=== PATIENT | male | born 1990 | race Caucasian/White ===

== ENCOUNTER 2022-08-06 13:13 | Observation (INO) | payer OTHER ==
[2022-08-06] MEDS ORDERED: ONDANSETRON 4 MG/2 ML VIAL IVP STA (13:36)
[2022-08-06] MEDS ORDERED: DIPH,PERTUS(ACELL)TETVAC-LF 0.5 ML VIAL IM ONE (13:36)
[2022-08-06] MEDS ORDERED: HYDROmorphone 1 MG/ML 1 ML SYRINGE IVP STA (13:36)
--- NOTE | 2022-08-06 14:04 | XR ---
EXAMINATION TYPE: XR knee limited RT DATE OF EXAM: 08/06/2022 CLINICAL HISTORY: Male penetrating injury with pain TECHNIQUE: Frontal and lateral views of the right knee are obtained. COMPARISON: None. FINDINGS: Metallic nail transverses from anterior to posterior direction and medial to lateral direc tion located just inferior to the anterior distal femoral condyle extending into the intercondylar no tch along posterior lateral course. No bony involvement or penetration clearly seen. There is no acut e fracture/dislocation evident in right knee. Mild tricompartment joint space loss. Moderate sized saez prapatellar joint effusion. IMPRESSION: As above.
[2022-08-06] MEDS ORDERED: PROPOFOL 10 MG/ML 20 ML VIAL IV STA (14:12)
[2022-08-06] MEDS ORDERED: SODIUM CHLORIDE 0.9% 500 ML 500 ML IV STA (14:12)
[2022-08-06] MEDS ORDERED: HYDROmorphone 0.5 MG/0.5 ML SYRINGE IVP STA ×2 (15:13→15:14)
--- NOTE | 2022-08-06 15:19 | ED ---
Lower Extremity Injury HPI - General Source: patient, RN notes reviewed Mode of arrival: wheelchair Limitations: no limitations <Rikki Dennison - Last Filed: 08/06/22 15:47> <Michael Johnson - Last Filed: 08/08/22 00:54> - General Chief Complaint: Extremity Injury, Lower Stated Complaint: shot nail rt knee Time Seen by Provider: 08/06/22 13:32 - History of Present Illness Initial Comments: 32-year-old male presents emergency from chief complaint of nail and right knee. Patient states that he was using a nail gun which fell down toward his knee striking his knee. Patient is unsure when his last tetanus was. Pain is quite severe at this time unable to move his leg denies any paresthesias. Patient states on the medial aspect of his knee. (Rkiki Dennison) - Related Data Previous Rx's Medication Instructions Recorded Cephalexin [Keflex] 500 mg PO Q6HR 10 Days #28 cap 08/07/22 HYDROcodone/APAP 7.5-325MG [[place] 1 each PO Q6HR PRN #28 tab 08/07/22 7.5] Ibuprofen [Motrin] 800 mg PO Q8H PRN #40 tab 08/07/22 Sennosides/Docusate Sodium 1 each PO DAILY PRN #21 tablet 08/07/22 [Senna-S 8.6-50 mg Tablet] Allergies Allergy/AdvReac Type Severity Reaction Status Date / Time No Known Allergies Allergy Verified 08/06/22 15:25 Review of Systems ROS Other: All systems not noted in ROS Statement are negative. <Rikki Dennison - Last Filed: 08/06/22 15:47> ROS Other: All systems not noted in ROS Statement are negative. <Michael Johnson - Last Filed: 08/08/22 00:54> ROS Statement: Those systems with pertinent positive or pertinent negative responses have been documented in the HPI. Past Medical History Past Medical History: No Reported History History of Any Multi-Drug Resistant Organisms: None Reported Past Surgical History: No Surgical Hx Reported Past Psychological History: No Psychological Hx Reported Smoking Status: Never smoker Past Alcohol Use History: None Reported Past Drug Use History: None Reported <Rikki Dennison - Last Filed: 08/06/22 15:47> General Exam Limitations: no limitations General appearance: alert, in no apparent distress Head exam: Present: atraumatic, normocephalic, normal inspection Respiratory exam: Present: normal lung sounds bilaterally. Absent: respiratory distress, wheezes, rales, rhonchi, stridor Cardiovascular Exam: Present: regular rate, normal rhythm, normal heart sounds. Absent: systolic murmur, diastolic murmur, rubs, gallop, clicks Extremities exam: Present: other (Right knee there is noted nail to the pat, trending to lateral distal portion of the leg neurovascular intact) <Rikki Dennison - Last Filed: 08/06/22 15:47> Course Vital Signs 08/06/22 08/06/22 08/06/22 13:22 13:42 15:06 Temperature 97.4 F L Pulse Rate 100 91 85 Respiratory 20 16 18 Rate Blood Pressure 130/76 109/74 132/97 O2 Sat by Pulse 98 98 98 Oximetry 08/06/22 08/06/22 08/06/22 15:27 15:37 15:45 Temperature Pulse Rate 71 61 62 Respiratory 18 18 18 Rate Blood Pressure 139/54 139/95 130/92 O2 Sat by Pulse 99 99 98 Oximetry 08/06/22 08/06/22 16:00 16:15 Temperature Pulse Rate 57 L 63 Respiratory 18 18 Rate Blood Pressure 138/88 147/81 O2 Sat by Pulse 98 98 Oximetry Procedures - Forgein Body Removal Soft Tissue Consent Obtained: written consent Site: lower extremity Foreign Body Suspected: Other (nail) Foreign Body Removed: no Patient Tolerated Procedure: well, no complications <Rikki Dennison - Last Filed: 08/06/22 15:47> - Procedural Sedation Procedural Sedation Start Time: 15:30 Procedural Sedation Stop Time: 15:45 Indications: other ASA Class: I Mallampati Airway Score: 1 Time of Last PO Intake: 12:00 Preparation: vehicle monitor technician applied, pulse oximeter, capnometry used, supplemental O2 applied, suction/airway equipment at bedside, IV secured IV Propofol Dose (mgs): 90 Complications: none Patient Tolerated Procedure: well, no complications <Michael Johnson - Last Filed: 08/08/22 00:54> Medical Decision Making <Rikki Dennison - Last Filed: 08/06/22 15:47> - Lab Data Result diagrams: 08/07/22 10:39 08/07/22 10:39 <Michael Johnson - Last Filed: 08/08/22 00:54> - Medical Decision Making Case discussed with orthopedics recommends have the nail removed patient was given tetanus, antibiotics patient will be admitted for washout of the knee. Attempted foreign body removal with consultation with Dr. Johnson. The nail was removed at the first part and which met large amount resistance, first ring heart was removed to the skin but unable to continue removal. At this time pat ient will be admitted (Rikki Dennison) Disposition Time of Disposition: 15:19 <Rikki Dennison - Last Filed: 08/06/22 15:47> <Michael Johnson - Last Filed: 08/08/22 00:54> Clinical Impression: Puncture wound of right knee with foreign body, Foreign body of right knee Disposition: ADMITTED IP TO THIS HOSP Condition: Good
[2022-08-06] MEDS ORDERED: PROPOFOL 10 MG/ML 20 ML VIAL IV ONE ×2 (15:35→18:23)
[2022-08-06] MEDS ORDERED: IV FLUID CONTINUATION 1,000 ML IV ONE (17:50)
--- NOTE | 2022-08-06 17:53 | P.HPOR ---
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 He accidentally punctured his knee with a nail gun through his pants. He notes he did receive a tetanus booster in the emergency room. He denies previous injury to the right knee. He is having a difficult time weightbearing and moving the knee. Review of Systems As per HPI Past Medical History Past Medical History: No Reported History History of Any Multi-Drug Resistant Organisms: None Reported Past Surgical History: No Surgical Hx Reported Past Psychological History: No Psychological Hx Reported Smoking Status: Never smoker Past Alcohol Use History: None Reported Past Drug Use History: None Reported Medications and Allergies Home Medications Medication Instructions Recorded Confirmed Type No Known Home Medications 08/06/22 08/06/22 History Allergies Allergy/AdvReac Type Severity Reaction Status Date / Time No Known Allergies Allergy Verified 08/06/22 15:25 Physical Examination - Knee right Appearance: effusion, other (Foreign body/nail protruding from the medial aspect of the right knee) Effusion grade: grade 1 Tenderness with palpation: medial, peripatellar Pain: with flexion Gait: limping ROM: extension: 0 degrees ROM: flexion: 25 degrees Results The patient's a well-developed well-nourished male of mesomorphic habitus. HEENT exam is nonfocal. Neck is supple. He has painless passive motion of the right hip. He has limited motion of the right knee secondary to pain. He has tenderness about the suprapatellar region along with medial aspect. He has a nail/foreign body protruding from the medial aspect the knee. There is no danna rounding erythema or warmth. His distal neurovascular appears intact in the right lower extremity. - Diagnostic results Knee x-ray: image reviewed (2 views of the right knee obtained in the emergency room show evidence of a metallic foreign bodyintra-articular positioning. No definite osseous abnormality is noted.) Assessment and Plan Assessment: Foreign body right kneeintra-articular Plan: I talked to the patient regarding his condition along with treatment options. This point we'll plan to remove the foreign body along with proceed with irrigation and debridement of the right knee arthroscopically. Risks and benefits were discussed at length in layman's terms. We will continue the patient on IV antibiotics overnight. Time with Patient: Less than 30
[2022-08-06] MEDS ORDERED: HYDROmorphone 0.5 MG/0.5 ML SYRINGE IVP PRN (18:22)
[2022-08-06] MEDS ORDERED: HYDROmorphone 1 MG/ML 1 ML SYRINGE IVP PRN (18:22)
[2022-08-06] MEDS ORDERED: traMADol 50 MG TAB PO PRN (18:23)
[2022-08-06] MEDS ORDERED: HYDROmorphone (PF) 1 MG/ML ONE (18:23)
[2022-08-06] MEDS ORDERED: ACETAMINOPHEN TAB 325 MG TAB PO PRN (18:23)
[2022-08-06] MEDS ORDERED: SUCCINYLCHOLINE CHLORIDE 200 MG/10 ML VIAL IV ONE (18:23)
[2022-08-06] MEDS ORDERED: fentaNYL (PF) 50 MCG/ML 2 ML AMP ONE (18:23)
[2022-08-06] MEDS ORDERED: LIDOCAINE 2% INJ 20 MG/ML (2 ML VIAL) ONE (18:23)
[2022-08-06] MEDS ORDERED: MIDAZOLAM 2 MG/2 ML VIAL ONE (18:23)
[2022-08-06] MEDS ORDERED: ONDANSETRON 4 MG/2 ML VIAL IVP PRN (18:27)
[2022-08-06] MEDS ORDERED: SODIUM CHLORIDE 0.9% 50 ML with ceFAZolin 2,000 MG IV ONE ×2 (18:28)
[2022-08-06] MEDS ORDERED: KETOROLAC 15 MG/ML 1 ML VIAL IVP PRN (18:29)
[2022-08-06] MEDS ORDERED: LACTATED RINGERS 1,000 ML IV ONE (18:53)
--- NOTE | 2022-08-06 19:39 | P.OP ---
Date of Procedure: 08/06/22 Preoperative Diagnosis: Foreign body right kneeintra-articular Postoperative Diagnosis: Same in addition to grade 4 chondral injury medial femoral condyle and lateral tibial plateau Procedure(s) Performed: Right knee arthroscopic irrigation and debridement/microfracture medial femoral condyle/lateral tibial chondrectomy/foreign body removal Anesthesia: CARI Surgeon: Suhail Peng Estimated Blood Loss (ml): 20 Pathology: none sent Condition: stable Disposition: PACU Indications for Procedure: The patient's a 32-year-old male who presents after injuring himself today with a nail gun. He sustained a foreign body that appeared to be intra-articular in the right knee. A discussion of the risks and benefits of operative intervention was made with patient. He opted to proceed. Operative risks to include infection, neurovascular injury, possible need for subsequent procedures was discussed. Informed consent was obtained. Operative Findings: As below Description of Procedure: The patient was brought to the operating room, and after induction of general anesthesia examined the right knee. The nail was protruding from the medial aspect of the right knee. This was then removed with gentle traction. One of the barbs was noted to be missing. The right lower extremity was prepped and draped in a normal fashion. I did extend his medial laceration approximately 1 cm and tried to dissect and remove the bunny. This was unsuccessful. A superior lateral portal was made through a 3 mm skin incision superior and lateral to the patella. This was used for outflow. A lateral portal was made through a 5 mm vertical skin incision lateral to the patella tendon above the joint line. Diagnostic arthroscopy was performed. On inspection of the medial compartment, a grade 4 chondral defect was noted involving the distal medial portion of the medial femoral condyle measuring 4 x 8 mm. There was a loose chondral flap that was removed with a motorized shaver. The medial meniscus was intact and stable.. T On inspection of the notch, the anterior cruciate ligament appeared to be intact. On inspection of the lateral compartment, a grade 4 chondral injury was noted involving the anterior medial portion of the lateral tibial plateau. There was a loose chondral flap removed with a biter and shaver. This measured approximately 3 x 4 mm. The knee was copiously irrigated with 9 L of fluid. The medial capsule was inspected and the metallic bunny was identified and removed. Microfracture was performed utilizing a power pick breeching the subchondral surface of the distal medial femoral condyle.. On inspection of the patellofemoral articulation, there is some chondral fibrillation. The gutters were clear debris. The knee was then thoroughly irrigated. The portals were closed with Steri-Strips. A sterile dressing was applied in addition to a compression stocking. The patient was awoken from general anesthesia and transferred to recovery room in good condition. Blood loss was estimated at 20 mL. No complications were incurred.
--- NOTE | 2022-08-06 20:28 | XR ---
EXAMINATION TYPE: XR knee limited RT DATE OF EXAM: 08/06/2022 7:54 PM INDICATION: Patient age:Male; 32 years old; Reason for study: s/p right knee surgery; COMPARISON: None. TECHNIQUE: The Right knee(s) was examined in Frontal, . FINDINGS: Prior foreign body consistent with nail is been removed. No evidence of fracture. Postsurg ical changes soft tissues. IMPRESSION: Status post nail removal without evidence of radiopaque foreign body. No fractures identified.
[2022-08-07] MEDS: HYDROcodone/APAP 7.5-325MG 1 EACH TAB PO PRN ×2 (03:12→09:09)
[2022-08-07 03:25] VITALS: RESP 17
[2022-08-07 07:32] VITALS: BP 139/76; PULSE 65; TEMP 97.8
[2022-08-07 10:55] LABS: Basophils % (A) 0 %; Eosinophils % (A) 0 %; HCT 39.3 % (39.0-53.0); HGB 13.2 gm/dL (13.0-17.5); Lymphocytes # (A) 1.6 k/uL (1.0-4.8); Lymphocytes % (A) 19 %; MCH 30.4 pg (25.0-35.0); MCHC 33.5 g/dL (31.0-37.0); MCV 90.8 fL (80.0-100.0); Mean Platelet Volume 8.1; Monocytes # (A) 0.5 k/uL (0-1.0); Monocytes % (A) 6 %; Neutrophils # (A) 6.4 k/uL (1.3-7.7); Neutrophils % (A) 74 %; Platelet Count 204 k/uL (150-450); RBC 4.33 m/uL (4.30-5.90); RDW 12.6 % (11.5-15.5); WBC 8.6 k/uL (3.8-10.6)
[2022-08-07 11:11] LABS: ALT 18 U/L (4-49); AST 23 U/L (17-59); African American GFR (CKD) >90 (>60 ml/min/1.73 sqM); Albumin 3.6 g/dL (3.5-5.0); Albumin/Globulin Ratio 1.6; Alkaline Phosphatase 42 U/L (38-126); Anion Gap 6 mmol/L; Blood Urea Nitrogen 13 mg/dL (9-20); C Reactive Protein 0.9 mg/dL (<1.0); Calcium 8.5 mg/dL (8.4-10.2); Carbon Dioxide 26 mmol/L (22-30); Chloride 105 mmol/L (98-107); Globulin 2.3 g/dL; Glucose 101 mg/dL (74-99); Non-African American GFR(CKD) >90 (>60 ml/min/1.73 sqM); Potassium 4.1 mmol/L (3.5-5.1); Sodium 137 mmol/L (137-145); Total Protein 5.9 g/dL (6.3-8.2)
--- NOTE | 2022-08-07 12:53 | P.PN ---
Subjective Progress Note Date: 08/07/22 Principal diagnosis: status post right knee arthroscopy with lavage and debridement, foreign body removal Patient evaluated at bedside today, his resting comfortably. Postop bandages position and condition. His pain is currently controlled. He does have some discomfort throughout the knee, he feels is pretty tight. He denies any numbness or tingling in the extremity. He denies any fevers or chills at this time. Objective - Vital Signs Vital signs: Vital Signs Temp 97.8 F 08/07/22 07:31 Pulse 65 08/07/22 08:00 Resp 17 08/07/22 08:00 BP 139/76 08/07/22 07:31 Pulse Ox 97 08/07/22 07:31 FiO2 21 08/06/22 21:11 Intake & Output 08/06/22 08/07/22 08/07/22 18:59 06:59 18:59 Intake Total 550 100 Output Total 300 420 Balance 250 -320 Weight 88.451 kg 88.451 kg Intake: IV 550 100 Output: Urine 300 400 Estimated Blood Loss 20 - Exam Right lower extremity: Postoperative bandage is in good position and condition. All compartments are soft and compressible knee extremity. Calf is soft, no tenderness with palpation. Plantar flexion, dorsiflexion, EHL, FHL are intact. Sensory exam to light touch is intact of the extremity, dorsalis pedis pulses 2+ - Labs CBC & Chem 7: 08/07/22 10:39 08/07/22 10:39 Labs: Abnormal Lab Results - Last 24 Hours (Table) 08/07/22 Range/Units 10:39 Glucose 101 H (74-99) mg/dL Total Protein 5.9 L (6.3-8.2) g/dL Assessment and Plan Assessment: Postoperative day #1 status post right knee arthroscopy with irrigation and debridement, foreign body removal Plan: Pain control, plan for discharge home on [place] and ibuprofen Wound care instructions were discussed, this including when removed bandage, showering instructions and elevating and icing Discussed this case with infectious disease, plan for discharge home on oral Keflex 500 mg every 6 hours for 1 week Discussed activity level restrictions, this concluded use of crutches and walker as needed Discharge planning: An orthopedic standpoint patient is to discharge to home with follow-up in the outpatient setting Time with Patient: Less than 30
--- NOTE | 2022-08-07 13:00 | P.DS ---
Providers Date of admission: 08/06/22 16:00 Expected date of discharge: 08/07/22 Attending physician: Suhail Peng Consults: 08/07/22 07:32 Consult Physician Routine Consulting Provider: Michelle Rogers Consult Reason/Comments: Antibiotic coverage, s/p removal foreign body Do you want consulting provider notified?: Yes Primary care physician: Shun Lugo [place] [facility] Course: Date of admission: 08/06/2022 Date of discharge: 08/07/2022 Admission diagnosis: Foreign body right knee Discharge diagnosis: Status post right knee arthroscopic lavage and debridement, microfracture the medial femoral condyle, chondroplasty of the lateral tibial plateau, foreign body removal Attending physician: Dr. Peng Surgical procedures: Right knee arthroscopic lavage and debridement, m icrofracture of the medial femoral condyle, chondroplasty lateral tibial plateau, foreign body removal Brief history: Patient is a 32-year-old male who presented to [facility] on 08/06/2022 after sustaining a puncture wound from a nail gun to his right knee. It was determined that the nail was intra-articular. I was contacted by the emergency room staff regarding the patient. Patient was admitted to [facility], he was started on IV antibiotics in the tetanus was updated in the emergency room. Plan for surgical intervention was scheduled for 08/06/2022. Hospital course: Details of patient's surgery can be found in operative report. Patient tolerated the procedure well and was subsequently transported to orthopedic floor. Patient's orthopeidc and medical care was provided daily.. Patient was treated with aspirin for their postoperative DVT prophylaxis during their inpatient stay. Patient was noted to have a relatively uneventful postoperative course. Infectious disease was available to evaluate the patient for recommendations. Patient reported satisfactory pain control with oral pain medications by postoperative day 0. Patient showed satisfactory progress with physical therapy. Patient moved steadily through the program and had no difficulty meeting the goals by postoperative day 1. Given patient's otherwise satisfactory course and having met physical therapy goals, plan is to discharge patient home on postoperative day 1. Discharge condition/disposition: Patient will be discharged home in stable condition. Discharge medications: Instructions are given on resumption of patient's normal daily medications per primary care recommendation, in addition patient will be prescribed [place] 7.5 mg/325 mg, ibuprofen 800 mg, Senokot-S, Keflex 500 mg. Orthopedic discharge instructions: 1. Okay to remove bandage is a 08/08/2022 2. Utilize compression sock to help with swelling 3. Keep incisions covered and dry while showering 4. Ice and elevate often 5. Utilize crutches/walker as needed 6. Pain medication and anti-inflammatories as needed 7. Plan [facility] 2 weeks 8. Please contact the office with any acute changes or questions regarding the knee Procedures: Right knee arthroscopic irrigation and debridement, microfracture the medial femoral condyle, chondroplasty lateral tibial plateau, foreign body removal Patient Condition at Discharge: Good Plan - Discharge Summary Discharge Rx Participant: Yes New Discharge Prescriptions: New Cephalexin [Keflex] 500 mg PO Q6HR 10 Days #28 cap Ibuprofen [Motrin] 800 mg PO Q8H PRN #40 tab PRN Reason: Pain HYDROcodone/APAP 7.5-325MG [[place] 7.5] 1 each PO Q6HR PRN #28 tab PRN Reason: Pain Sennosides/Docusate Sodium [Senna-S 8.6-50 mg Tablet] 1 each PO DAILY PRN #21 tablet PRN Reason: Constipation Discharge Medication List Cephalexin [Keflex] 500 mg PO Q6HR 10 Days #28 cap 08/07/22 [Rx] HYDROcodone/APAP 7.5-325MG [[place] 7.5] 1 each PO Q6HR PRN #28 tab 08/07/22 [Rx] Ibuprofen [Motrin] 800 mg PO Q8H PRN #40 tab 08/07/22 [Rx] Sennosides/Docusate Sodium [Senna-S 8.6-50 mg Tablet] 1 each PO DAILY PRN #21 tablet 08/07/22 [Rx] Follow up Appointment(s)/Referral(s): Shun Boggs MD [Primary Care Provider] - 1-2 days Joe Balderrama PAC [PHYSICIAN AUTOMATIC QUILLING MACHINE OPERATOR] - 2 Weeks Activity/Diet/Wound Care/Special Instructions: Orthopedic discharge instructions: 1. Okay to remove bandage is a 08/08/2022 2. Utilize compression sock to help with swelling 3. Keep incisions covered and dry while showering 4. Ice and elevate often 5. Utilize crutches/walker as needed 6. Pain medication and anti-inflammatories as needed 7. Plan for [facility]-up at [facility] 2 weeks 8. Please contact the office with any acute changes or questions regarding the knee Discharge Disposition: HOME SELF-CARE
== END 2022-08-07 13:48 | disposition home or self-care (01) ==
LOC: OR 13:13 → 4SSUR 16:00
PROVIDERS: ADMIT Orthopaedic Surgery; ATTEND Orthopaedic Surgery
DX: S81.041A Puncture wound with foreign body, right knee, initial encounter (principal); W45.0XXA Nail entering through skin, initial encounter; W29.4XXA Contact with nail gun, initial encounter; M24.19 Other articular cartilage disorders, other specified site; Z23 Encounter for immunization
CPT/HCPCS: 96376; 90471; 96365; 96375; 99284; 80053; 85025; 86140; 87040; 73560; 90715; 29874; 29879; G0378 ×2; J2250; J0330; J0690 ×3; J2405; J3010; J1170 ×2; J1885; J2704; J2001